=== PATIENT | female | born 2000 | race American Indian/Alaskan Native ===

== ENCOUNTER 2021-03-14 10:33 | Emergency (ER) | payer OTHER ==
[2021-03-14 11:04] VITALS: BP 136/77
--- NOTE | 2021-03-14 12:05 | Emergency Department Report ---
ED General Adult HPI - General Chief complaint: Nausea/Vomiting/Diarrhea Stated complaint: NOT ABLE TO KEEP FOOD DOWN Time Seen by Provider: 03/14/21 11:52 Source: patient Mode of arrival: Ambulatory Limitations: No Limitations - History of Present Illness Initial comments: 21-year-old -Bangl[place] female presents to the emergency room reporting she has been having vomiting and diarrhea for the last week. Patient states that she last vomited yesterday. She reports that she is able to drink fluids. States that she has been taking antidiarrhea medication but does not know the name. She reports she is having just diffuse cramping. She denies any fever chills no vaginal discharge vaginal bleeding. Patient states that she was recently treated for a pelvic infection 2 weeks ago [facility] [address] her on 4 medications. She states that she called her doctor and told him that she was having those symptoms and they told her to discontinue medication. Patient does admit to having unprotected intercourse. Last menstr ual period was 03/10/2021. Onset/Timin -: week(s) Location: abdomen Severity scale (0 -10): 7 Quality: other (Cramping) Consistency: intermittent Improves with: none Worsens with: none Associated Symptoms: nausea/vomiting (Last vomited yesterday). denies: confusion, chest pain, cough, diaphoresis, fever/chills, headaches, loss of appetite, malaise, rash, seizure, shortness of breath, syncope, weakness Treatments Prior to Arrival: none - Related Data Allergies Allergy/AdvReac Type Severity Reaction Status Date / Time No Known Allergies Allergy Unverified 03/14/21 11:02 ED Review of Systems ROS: Stated complaint: NOT ABLE TO KEEP FOOD DOWN Other details as noted in HPI Comment: All other systems reviewed and negative ED Past Medical Hx - Past Medical History Previous Medical History?: No - Surgical History Past Surgical History?: Yes Additional Surgical History: nose ED Physical Exam - General Limitations: No Limitations General appearance: alert, in no apparent distress - Head Head exam: Present: atraumatic, normocephalic - Eye Eye exam: Present: normal appearance - ENT ENT exam: Present: mucous membranes moist - Neck Neck exam: Present: normal inspection - Respiratory Respiratory exam: Absent: accessory muscle use - Cardiovascular Cardiovascular Exam: Present: regular rate - Extremities Exam Extremities exam: Present: normal inspection, full ROM - Back Exam Back exam: Present: normal inspection - Neurological Exam Neurological exam: Present: alert, oriented X3, normal gait - Psychiatric Psychiatric exam: Present: normal affect, normal mood - Skin Skin exam: Present: warm, dry, intact, normal color. Absent: rash ED Course Vital Signs 03/14/21 11:03 Temperature 98.5 F Pulse Rate 70 Respiratory 20 Rate Blood Pressure 136/77 O2 Sat by Pulse 99 Oximetry - Reevaluation(s) Reevaluation #1: 03/14/21 14:42 Patient has not had any more vomiting since yesterday no diarrhea since being here in triage. Patient can follow-up with her primary care provider. ED Medical Decision Making - Lab Data Result diagrams: 03/14/21 12:35 03/14/21 12:35 Laboratory Tests 03/14/21 03/14/21 03/14/21 12:35 12:35 Unknown WBC 6.1 RBC 4.49 Hgb 11.3 Hct 34.8 MCV 78 L MCH 25 L MCHC 33 RDW 17.4 H Plt Count 274 Lymph % (Auto) 24.8 [place] % (Auto) 10.8 H Eos % (Auto) 0.5 Baso % (Auto) 0.9 Lymph # (Auto) 1.5 [place] # (Auto) 0.7 Eos # (Auto) 0.0 Baso # (Auto) 0.1 Seg Neutrophils % 63.0 Seg Neutrophils # 3.9 Sodium 140 Potassium 3.9 Chloride 105.0 Carbon Dioxide 24 Anion Gap 15 BUN 7 Creatinine 0.5 L Estimated GFR > 60 BUN/Creatinine Ratio 14 Glucose 86 Calcium 9.7 Total Bilirubin 0.50 AST 13 ALT 6 L Alkaline Phosphatase 51 Total Protein 7.3 Albumin 4.6 Albumin/Globulin Ratio 1.7 Lipase 16 Urine Color Yellow Urine Turbidity Slightly-cloudy Urine pH 6.0 Ur Specific [place] 1.012 Urine Protein <15 mg/dl Urine Glucose (UA) Neg Urine Ketones Neg Urine Blood Lg Urine Nitrite Neg Urine Bilirubin Neg Urine Urobilinogen < 2.0 Ur Leukocyte Esterase Neg Urine WBC (Auto) 4.0 Urine RBC (Auto) 66.0 U Epithel Cells (Auto) 7.0 Urine Bacteria (Auto) 1+ Urine Mucus Few Urine HCG, Qual Negative - Medical Decision Making 21-year-old -[place] female presents to the emergency room reporting she has been having vomiting and diarrhea for the last week. Patient states that she last vomited yesterday. She reports that she is able to drink fluids. States that she has been taking antidiarrhea medication but does not know the name. She reports she is having just diffuse cramping. She denies any fever chills no vaginal discharge vaginal bleeding. Patient states that she was recently treated for a pelvic infection 2 weeks ago [facility] [address] her on 4 medications. She states that she called her doctor and told him that she was having those symptoms and they told her to discontinue medication. Patient does admit to having unprotected intercourse. Last menstrual period was 03/10/2021. CBC CMP lipase urinalysis urine tests are all stable. Patient no longer has any vomiting since yesterday and has not had any loose stools since being here in the emergency room. The patient is resting comfortably and feels better, is alert and in no distress. The repeat examination is unremarkable and benign; in particular, there is no discomfort at the McBurney's point and there is no pulsating mass. The history, exam and diagnostic testing, and current condition do not suggest an acute appendicitis, bowel obstruction, or acute cholecystitis, bowel perforation, major gastrointestinal bleeding, severe diverticulitis, abdominal aorta, mesenteric ischemia, volvulus, sepsis, or other significant pathology to warrant further testing, continued ED treatment, admission, or surgical evaluation at this point. The vital signs have been stable. The patient does not have uncomfortable pain, irretractable vomiting, or other significant symptoms. The patient's condition is stable and appropriate for discharge from the emergency room. The patient will pursue further outpatient evaluation with the primary care physician or other designated or consulting physician as indicated in the discharge instructions. Critical care attestation.: If time is entered above; I have spent that time in minutes in the direct care of this critically ill patient, excluding procedure time. ED Disposition Clinical Impression: Diarrhea due to drug Vomiting Qualifiers: Vomiting type: unspecified Vomiting Intractability: intractable Nausea presence: unspecified Qualified Code(s): R11.10 - Vomiting, unspecified Disposition: DC-01 TO HOME OR SELFCARE Is pt being admited?: No Does the pt Need Aspirin: No Condition: Stable Instructions: Food Choices to Help Relieve Diarrhea, Adult, Nausea and Vomiting, Adult, [id number], Diarrhea, Adult, [id number] Additional Instructions: Labs are stable. Symptoms have improved. 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 Increase your fluid intake advance your diet as tolerated. Referrals: PRIMARY CARE,MD [Primary Care Provider] - 3-5 Days You are, FILLING ROOM OPERATOR [Other] - 3-5 Days Forms: Work/School Release Form(ED) Time of Disposition: 14:46
[2021-03-14 13:18] LABS: Bacteria,Urine 1+ /HPF (Negative); Bilirubin,Urine NEG (Negative); Blood,Urine LG (Negative); Color,Urine Yellow (Yellow); Mucus,Urine FEW /HPF; Protein,Urine <15 mg/dL mg/dL (Negative); Urobilinogen,Urine < 2.0 mg/dL (<2.0)
[2021-03-14 13:44] LABS: Basophils # (Auto) 0.1 K/mm3 (0.0-0.1); Basophils % (Auto) 0.9 % (0.0-1.8); Eosinophils % (Auto) 0.5 % (0.0-4.3); Hematocrit 34.8 % (30.3-42.9); Hemoglobin 11.3 gm/dl (10.1-14.3); Lymphocytes # (Auto) 1.5 K/mm3 (1.2-5.4); Lymphocytes % (Auto) 24.8 % (13.4-35.0); Mean Corpuscular HGB Conc 33 % (30-34); Mean Corpuscular Volume 78 fl (79-97); Monocytes # (Auto) 0.7 K/mm3 (0.0-0.8); Monocytes % (Auto) 10.8 % (0.0-7.3); Platelet Count 274 K/mm3 (140-440); Red Blood Count 4.49 M/mm3 (3.65-5.03); Red Cell Distribution Width 17.4 % (13.2-15.2)
[2021-03-14 13:48] LABS: Alanine Aminotransferase 6 units/L (7-56); Albumin 4.6 g/dL (3.9-5); Blood Urea Nitrogen 7 mg/dL (7-17); Calcium 9.7 mg/dL (8.4-10.2); Hemolysis Index 12
[2021-03-14 13:51] LABS: BUN/Creatinine Ratio 14
[2021-03-14 13:56] LABS: HCG Qualitative,Urine Negative (Negative)
== END 2021-03-14 14:54 | disposition home or self-care (01) ==
LOC: ED 10:33
DX: K52.1 Toxic gastroenteritis and colitis (principal); R11.10 Vomiting, unspecified
CPT/HCPCS: 36415; 80053; 81001; 81025; 83690; 85025

== ENCOUNTER 2021-08-05 08:25 | Emergency (ER) | payer OTHER ==
[2021-08-05 08:33] VITALS: BP 135/78
--- NOTE | 2021-08-05 08:43 | Emergency Department Report ---
ED Headache HPI - General Chief Complaint: Weakness Stated Complaint: FATIGUE Time Seen by Provider: 08/05/21 08:39 Source: patient Exam Limitations: no limitations - History of Present Illness Initial Comments: The patient was evaluated in the emergency department for symptoms described in the history of present illness. He/she was evaluated in the context of the global COVID-19 pandemic, which necessitated consideration that the patient might be at risk for infection with the virus that causes COVID-19. Institutional protocols and algorithms that pertain to the evaluation of patients at risk for COVID-19 are in a state of rapid change based on information released by regulatory bodies including the CDC and federal and state organizations. These policies and algorithms were followed during the patient's care in the emergency department. Please note that these policies, procedures and recommendations changed on a rapid basis. 21-year-old -[place] female presents to the emergency room complaining of a headache and fatigue for 2 weeks. Patient reports that her headaches is located in the frontal area she is having nasal congestion. She has taken no sinus medicines at all. She has been taking Tylenol. She denies any fever chills, no nausea no vomiting no shortness of breath. She denies any chest pain difficulty breathing. She currently takes no meds on a daily basis does not have a primary care provider just not have a past medical history. She has not been vaccinated for Covid and last Covid test was June 2021. Timing/Duration: 1 week (2) Quality: mild, achy Head Injury Location: frontal Recent Head Trauma: no recent headache/trauma Modifying Factors: improves with: movement Associated Symptoms: nasal congestion. denies: facial pain, fever/chills, loss of consciousness, nausea/vomiting, nasal drainage, numbness in legs/feet, seizures, stiff neck, vision changes, weakness Allergies/Adverse Reactions: Allergies No Known Allergies Allergy (Unverified 03/14/21 11:02) Home Medications: Ambulatory Orders No Known Home Medications [No Reported Home Medications] 08/05/21 ED Review of Systems ROS: Stated complaint: FATIGUE Other details as noted in HPI ED Past Medical Hx - Surgical History Additional Surgical History: nose - Medications Home Medications: Home Medications Medication Instructions Recorded Confirmed Last Taken Type No Known Home Medications [No 08/05/21 08/05/21 Unknown History Reported Home Medications] ED Physical Exam - General Limitations: No Limitations General appearance: alert, in no apparent distress - Head Head exam: Present: atraumatic, normocephalic, other (Tenderness over the frontal and maxillary sinuses. ) - Eye Eye exam: Present: normal appearance - ENT ENT exam: Present: mucous membranes moist - Neck Neck exam: Present: normal inspection - Respiratory Respiratory exam: Present: normal lung sounds bilaterally. Absent: respiratory distress - Cardiovascular Cardiovascular Exam: Present: regular rate, normal rhythm. Absent: systolic murmur, diastolic murmur, rubs, gallop - GI/Abdominal GI/Abdominal exam: Present: soft, normal bowel sounds - Extremities Exam Extremities exam: Present: normal inspection - Back Exam Back exam: Present: normal inspection - Neurological Exam Neurological exam: Present: alert, oriented X3 - Psychiatric Psychiatric exam: Present: normal affect, normal mood - Skin Skin exam: Present: warm, dry, intact, normal color. Absent: rash ED Course Vital Signs 08/05/21 08:25 Temperature 98.4 F Pulse Rate 98 H Respiratory 14 Rate Blood Pressure 135/78 [Right] O2 Sat by Pulse 100 Oximetry ED Medical Decision Making - Medical Decision Making 21-year-old -[place] female presents to the emergency room complaining of a headache and fatigue for 2 weeks. Patient reports that her headaches is located in the frontal area she is having nasal congestion. She has taken no sinus medicines at all. She has been taking Tylenol. She denies any fever chills, no nausea no vomiting no shortness of breath. She denies any chest pain difficulty breathing. She currently takes no meds on a daily basis does not have a primary care provider just not have a past medical history. She has not been vaccinated for Covid and last Covid test was June 2021. Discussed with patient that this appears to be a sinus headache. She denies the worst headache of her life and I recommend [id number] Sudafed or sinus medicine. She does not have a history of hypertension. She can take ibuprofen for her headache. Increase her fluid intake and follow-up with the primary care provider. Critical care attestation.: If time is entered above; I have spent that time in minutes in the direct care of this critically ill patient, excluding procedure time. ED Disposition Clinical Impression: Sinus headache Disposition: HOME / SELF CARE / HOMELESS Is pt being admited?: No Does the pt Need Aspirin: No Condition: Stable Additional Instructions: Try taking [id number] sinus pressure medication. Increase your water intake which means you need to be drinking at least 64 ounces of water daily. Ibuprofen and Tylenol are great for headaches. Follow-up with your primary care provider. I encourage you to get your Covid vaccination. Referrals: ORQUIDEA POTTS MD [Staff Physician] - 3-5 Days Forms: Work/School Release Form(ED) Time of Disposition: 08:44
== END 2021-08-05 08:51 | disposition home or self-care (01) ==
LOC: ED 08:25
DX: R51.9 Headache, unspecified (principal)
CPT/HCPCS: 99282

== ENCOUNTER 2021-09-06 09:18 | Emergency (ER) | payer OTHER ==
[2021-09-06 09:26] VITALS: BP 152/88
--- NOTE | 2021-09-06 10:24 | Emergency Department Report ---
- General Chief Complaint: Upper Respiratory Infection Stated Complaint: FEVER, BODY ACHES, CHEST PAIN Time Seen by Provider: 09/06/21 10:08 Source: patient Mode of arrival: Ambulatory Limitations: No Limitations - History of Present Illness Initial Comments: Is a pleasant 21-year-old female presents emerged department chief complaint of cough, congestion, generalized myalgias, fatigue over the past few days. She has a positive exposure to COVID-19 at her job. She denies any known past medical history, current medication use or known allergies to medications. She did not get vaccinated for COVID-19. - Related Data Previous Rx's Medication Instructions Recorded Last Taken Type Albuterol Sulfate [Proair 90 mcg IH Q4HR #1 aer.pw.bas 09/06/21 Unknown Rx Digihaler] Benzonatate [Tessalon Perles] 100 mg PO Q8HR #30 capsule 09/06/21 Unknown Rx methylPREDNISolone [Medrol 4MG 4 mg PO ONCE #1 tab.ds.pk 09/06/21 Unknown Rx DOSEPAK (21 tabs)] Allergies Allergy/AdvReac Type Severity Reaction Status Date / Time No Known Allergies Allergy Verified 09/06/21 09:26 ED Review of Systems ROS: Stated complaint: FEVER, BODY ACHES, CHEST PAIN Other details as noted in HPI Constitutional: chills, fever Eyes: denies: eye pain, eye discharge, vision change ENT: congestion. denies: ear pain, throat pain Respiratory: cough. denies: shortness of breath, wheezing Cardiovascular: denies: chest pain, palpitations Endocrine: no symptoms reported Gastrointestinal: denies: abdominal pain, nausea, diarrhea Genitourinary: denies: urgency, dysuria, discharge Musculoskeletal: as per HPI, myalgia. denies: back pain, joint swelling, arthralgia Skin: denies: rash, lesions Neurological: denies: headache, weakness, paresthesias Psychiatric: denies: anxiety, depression Hematological/Lymphatic: denies: easy bleeding, easy bruising ED Past Medical Hx - Surgical History Additional Surgical History: nose - Medications Home Medications: Home Medications Medication Instructions Recorded Confirmed Last Taken Type Albuterol Sulfate [Proair 90 mcg IH Q4HR #1 aer.pw.bas 09/06/21 Unknown Rx Digihaler] Benzonatate [Tessalon Perles] 100 mg PO Q8HR #30 capsule 09/06/21 Unknown Rx methylPREDNISolone [Medrol 4MG 4 mg PO ONCE #1 tab.ds.pk 09/06/21 Unknown Rx DOSEPAK (21 tabs)] ED Physical Exam - General Limitations: No Limitations General appearance: alert, in no apparent distress - Head Head exam: Present: atraumatic, normocephalic - Eye Eye exam: Present: normal appearance - ENT ENT exam: Present: normal exam, normal orophraynx, mucous membranes moist - Neck Neck exam: Present: normal inspection, full ROM. Absent: tenderness, meningismus - Respiratory Respiratory exam: Present: wheezes, other (Mild expiratory wheezes, no increased work of breathing.). Absent: respiratory distress, rales, rhonchi, stridor - Cardiovascular Cardiovascular Exam: Present: regular rate, normal rhythm. Absent: systolic murmur, diastolic murmur, rubs, gallop - GI/Abdominal GI/Abdominal exam: Present: soft, normal bowel sounds. Absent: distended, tenderness, guarding, rebound, rigid - Extremities Exam Extremities exam: Present: normal inspection, full ROM, normal capillary refill. Absent: tenderness, calf tenderness (Negative Homans' sign bilaterally, no posterior calf tenderness) - Back Exam Back exam: Present: normal inspection - Neurological Exam Neurological exam: Present: alert, oriented X3 - Psychiatric Psychiatric exam: Present: normal affect, normal mood - Skin Skin exam: Present: warm, dry, intact, normal color. Absent: rash ED Course Vital Signs 09/06/21 09:23 Temperature 100.1 F H Pulse Rate 104 H Respiratory 20 Rate Blood Pressure 152/88 [Left] O2 Sat by Pulse 100 Oximetry ED Medical Decision Making - Medical Decision Making Patient nontoxic no acute distress. Vital signs stable. Low risk by Wells criteria for PE. Patient had mild wheezing which I will treat with a Medrol Dosepak and inhaler as well as Tessalon Perles and recommended Tylenol at home for body aches and follow-up with her primary care doctor. Patient will be given CDC guidelines for recommended social distancing, handwashing and mask wearing. Recommended she stay to work for the next 5 days per CDC guidelines. - Differential Diagnosis COVID-19, pneumonia, influenza Critical care attestation.: If time is entered above; I have spent that time in minutes in the direct care of this critically ill patient, excluding procedure time. ED Disposition Clinical Impression: Acute viral syndrome, Suspected COVID-19 virus infection Disposition: HOME / SELF CARE / HOMELESS Is pt being admited?: No Condition: Stable Prescriptions: methylPREDNISolone [Medrol 4MG DOSEPAK (21 tabs)] 4 mg PO ONCE #1 tab.ds.pk Albuterol Sulfate [Proair Digihaler] 90 mcg IH Q4HR #1 aer.pw.bas Benzonatate [Tessalon Perles] 100 mg PO Q8HR #30 capsule Referrals: PRIMARY CARE, [Primary Care Provider] - 3-5 Days [facility] [Provider Group] - 3-5 Days Forms: Work/School Release Form(ED) Time of Disposition: 10:24
== END 2021-09-06 10:48 | disposition home or self-care (01) ==
LOC: ED 09:18
DX: B34.9 Viral infection, unspecified (principal); Z20.822 Contact with and (suspected) exposure to COVID-19
CPT/HCPCS: 99282